=== PATIENT | male | born 1975 | race Two or more races ===

== ENCOUNTER 2021-04-29 06:14 | Outpatient (REF) | payer OTHER, SELFPAY ==
[2021-04-29 09:25] LABS: Alanine Aminotransferase 22 U/L (0-40); Albumin Level 4.5 g/dL (3.5-5.0); Alkaline Phosphatase 53 U/L (39-117); Anion Gap 12 (12-20); Aspartate Amino Transferase 14 U/L (5-37); Bilirubin Total 0.3 mg/dL (0.0-1.0); Blood Urea Nitrogen 10 mg/dL (9-16); Calcium 9.5 mg/dL (8.4-10.2); Carbon Dioxide 31 mmol/L (22-29); Chloride 105 mmol/L (96-108); Cholesterol 193 mg/dL; Estimated Glomerular Filt Rate > 60; Glucose Fasting 109 mg/dL (60-99); HDL Cholesterol 30 mg/dL; LDL Cholesterol Calculated 101 mg/dl; Potassium 4.2 mmol/L (3.3-5.1); Sodium 144 mmol/L (135-145); Total Protein 7.9 g/dL (6.5-8.0); Triglycerides 311 mg/dL
== END 2021-04-29 06:15 | disposition home or self-care (01) ==
LOC: HO.LAB 06:14
PROVIDERS: PCP Internal Medicine; Visit Provider Internal Medicine
DX: E66.9 Obesity, unspecified (principal); E78.5 Hyperlipidemia, unspecified
CPT/HCPCS: 36415; 80053; 80061

== ENCOUNTER 2022-01-04 06:05 | Outpatient (REF) | payer OTHER, SELFPAY ==
[2022-01-04 06:17] LABS: MANUAL DIFF FLAG NO
[2022-01-04 07:29] LABS: Basophils Percent Auto 0.9 % (0-2); Eosinophils Absolute Auto 0.3 X10*3/uL (0.0-0.4); Eosinophils Percent Auto 6.4 % (0-4); Hematocrit 47.9 % (42.0-52.0); Hemoglobin 15.1 g/dl (14.0-18.0); Lymphocytes Absolute Auto 2.3 X10*3/uL (1.2-4.9); Lymphocytes Percent Auto 48.7 % (20-40); Mean Corpuscular HGB Conc 31.5 g/dl (31.0-36.0); Mean Corpuscular Hemoglobin 27.1 pg (27.0-33.0); Mean Corpuscular Volume 85.8 fL (80.0-98.0); Mean Platelet Volume 9.9 fL (9.4-12.4); Monocytes Absolute Auto 0.4 X10*3/uL (0.1-1.2); Monocytes Percent Auto 8.9 % (2-11); Neutrophils Absolute Auto 1.7 x10*3/uL (2.0-8.3); Neutrophils Percent Auto 35.1 % (45-73); Platelet Count 240 X10*3/uL (160-400); Red Blood Count 5.58 X10*6/uL (4.60-5.80); Red Cell Distribution Width 14.8 % (11.0-16.0); White Blood Count 4.7 X10*3/uL (4.8-10.8)
[2022-01-04 07:54] LABS: Alanine Aminotransferase 25 U/L (0-40); Albumin Level 4.4 g/dL (3.5-5.0); Alkaline Phosphatase 43 U/L (39-117); Anion Gap 14 (12-20); Aspartate Amino Transferase 21 U/L (5-37); Bilirubin Total 0.6 mg/dL (0.0-1.0); Blood Urea Nitrogen 14 mg/dL (9-16); Calcium 9.9 mg/dL (8.4-10.2); Carbon Dioxide 33 mmol/L (22-29); Chloride 102 mmol/L (96-108); Cholesterol 194 mg/dL; Estimated Glomerular Filt Rate > 60; Glucose Fasting 90 mg/dL (60-99); HDL Cholesterol 36 mg/dL; LDL Cholesterol Calculated 122 mg/dl; Potassium 4.6 mmol/L (3.3-5.1); Sodium 144 mmol/L (135-145); Total Protein 7.5 g/dL (6.5-8.0); Triglycerides 180 mg/dL
[2022-01-04 08:16] LABS: Thyroid Stimulating Hormone 2.41 uIU/mL (0.32-4.0)
== END 2022-01-04 06:06 | disposition home or self-care (01) ==
LOC: HO.LAB 06:05
PROVIDERS: PCP Internal Medicine; Visit Provider Internal Medicine
DX: E78.5 Hyperlipidemia, unspecified (principal); E66.9 Obesity, unspecified; K21.9 Gastro-esophageal reflux disease without esophagitis
CPT/HCPCS: 36415; 80053; 80061; 84443; 85025

== ENCOUNTER 2023-05-25 10:36 | Day surgery (SDC) | payer OTHER, SELFPAY ==
[2023-05-23 09:46] VITALS: BMI 35.6
--- NOTE | 2023-05-24 09:33 | HO.ANESPROP2 ---
Documented by User: Michelle Prather NP 05/24/23 09:33 HPI - Anesthesia Eval Consult details Narrative: 47yo M for Colonoscopy PMFSH Active Problems Active Problems: All Active Problems (Updated 11/21/22 @ 09:20 by Bonnie Hickey MD) Stress at work (Acute) Physical exam (Acute) Mass of right hip region (Acute) Dyslipidemia (Acute) Obese (Acute) GERD (gastroesophageal reflux disease) (Acute) Past Medical History Medical History Dyslipidemia GERD (gastroesophageal reflux disease) Obese Family History Family History Father No problems noted. Mother Hypertension Stroke Surgical History Surgical History History of tonsillectomy Social History Social History Housing: House Alcohol intake: never Patient Tobacco Use Status: Never used Tobacco e-Cigarette/Vaping Use: Never Used Second Hand Smoke Exposure: No Are you DNR?: No Advance Directives: No Advance Directives Information Provided: Yes Nutrition Risks: No Nutritional Risk service: No Current occupational status: employed Current occupational exposures/hazards: No Cognitive needs: No Hearing needs: No Vision needs: No Meds Allergies Allergy/AdvReac Type Severity Reaction Status Date / Time No Known Allergies Allergy Verified 03/29/23 08:36 Exam Exam Date and Time: May 24, 2023 0933 Height,Weight and Vital Signs: Height 5 ft 10 in Weight 112.491 kg Assessment and Plan Assessment Anesthesia Assessment: Chart Reviewed Documented by User: Kendrick Prescott MD 05/25/23 11:20 [facility] Past Medical History Medical History Dyslipidemia GERD (gastroesophageal reflux disease) Obese Family History Family History Father No problems noted. Mother Hypertension Stroke Family history of problems with anesthesia: No Surgical History Surgical History History of tonsillectomy History of Problems with Anesthesia: No Social History Social History Housing: House Alcohol intake: never Patient Tobacco Use Status: Never used Tobacco e-Cigarette/Vaping Use: Never Used Second Hand Smoke Exposure: No Are you DNR?: No Advance Directives: No Advance Directives Information Provided: Yes Nutrition Risks: No Nutritional Risk service: No Current occupational status: employed Current occupational exposures/hazards: No Cognitive needs: No Hearing needs: No Vision needs: No Meds Allergies Allergy/AdvReac Type Severity Reaction Status Date / Time No Known Allergies Allergy Verified 03/29/23 08:36 Exam Airway Mallampati Class: II TM Dist: >3cm Neck ROM: Full Loose/Missing/Broken Teeth: No Assessment and Plan Assessment Anesthesia Assessment: Anesthesia Plan Discussed Final Anesthetic Review Family History of Problems with Anesthesia: No History of Problems with Anesthesia: No NPO: Yes ASA Class: II Final Preanesthetic Review: No Changes in Pt Med Stat, Meds/Allgs Chart Reviewed, Consent Obtained/Reviewed and Anes Risks/Benef Reviewed Patient Risk: Low Procedure Risk: Low Anesthetic Plan Anesthetic Plan: MAC: Disposition: Standard PACU
[2023-05-25] MEDS: Lactated Ringers 1,000 ML 100 ML IVCONT (10:47)
[2023-05-25 11:01] VITALS: BP 137/93; PULSE 92; RESP 18; TEMP 36.7; O2SAT 95
--- NOTE | 2023-05-25 11:13 | MHC.SHP ---
Pre-Procedural Eval Section A Date of Service: 05/25/23 Section B Chief Complaint: screening Details of Present Illness: Medical History Dyslipidemia GERD (gastroesophageal reflux disease) Obese Surgical History History of tonsillectomy Allergies: Allergies Allergy/AdvReac Type Severity Reaction Status Date / Time No Known Allergies Allergy Verified 03/29/23 08:36 Review of Systems Review of Systems Comment: 10 point ROS negative Exam Exam Comment: Gen appear: No acute distress HEENT: no icterus Chest: No overt resp distress Abd: soft, nontender, nondistended Psych: Stable affect, answering questions appropriately Neuro: A/Ox3 noted to move all extremities spontaneously Ext: no peripheral edema Plan Diagnosis/Plan: Unchanged I have reviewed the history and physical and performed a pertinent physical examination on my patient. No changes have occurred unless specified. Time Spent With Patient Time: Total time managing care of this patient today ____ minutes.
--- NOTE | 2023-05-25 11:22 | P.OP_ITS ---
Operative Note Operative Note Date of Service: 05/25/23 Narrative: Procedure: Colonoscopy Indication: Screening Endoscopist: Ketty Bates MD Anesthesia Provider: Dr Kendrick Prescott Anesthesia type: MAC Instrument: Olympus [id number]-[id number] Consent: Indication, risks vs benefits, and alternatives were discussed with the patient who gave written informed consent to proceed. EKG, pulse, pulse oximetry and blood pressure were monitored throughout the procedure. Please see anesthesia flowsheet. Procedure: The patient was brought to the procedure room and placed in the left lateral decubitus position. IV medications were administered by the anesthesia provider in attendance. A digital rectal exam was performed which was normal. A distal attachment cap was affixed to the tip of the scope and the colonoscope was then inserted through the anus and advanced through the colon to the cecum at 75 cm,and terminal ileum. Mucosa was carefully examined under high definition white light as the instrument was slowly withdrawn in a retrograde panoramic fashion. Retroflexion was performed in rectum. The procedure was not difficult. There were no immediate obvious complications. The quality of the prep was BBPS: 3+2+3 = adequate Withdrawal time 10 minutes. Limitations: No limitations. Findings: Mucosa: Aphthous erosions and ulcerations were noted on the IC valve and terminal ileum limited to first 10 cm. The terminal ileum mucosa was normal beyond 10 cm of intubation and the remaining colon mucosa was normal as well. Cold forceps biopsies were taken for histology. Protruding lesions: * Medium internal hemorrhoids without stigmata of recent bleeding. Impression: 1. Abnormal distal T.I and ICV mucosa (biopsy) 2. Internal hemorrhoids Recommendations: - Follow path results. - If no stigmata of chronic inflammation, repeat colonoscopy in 10 years for CRC screening. - Also recommend sleep study to r/o DESTINY.
[2023-05-25 11:53] VITALS: BP 131/91; PULSE 91; RESP 16; TEMP 36.2; O2SAT 97
[2023-05-25 12:08] VITALS: BP 132/98; PULSE 78; RESP 16; TEMP 36.2; O2SAT 97
== END 2023-05-25 13:38 | disposition home or self-care (01) ==
PROVIDERS: PCP Internal Medicine; Visit Provider Internal Medicine
PROC: 0DJD8ZZ Inspection of Lower Intestinal Tract, Via Natural or Artificial Opening Endoscopic (ICD-10-PCS; CPT 45378; principal; 2023-05-25 13:20)
DX: Z12.11 Encounter for screening for malignant neoplasm of colon (principal); K51.80 Other ulcerative colitis without complications; K64.8 Other hemorrhoids; E78.5 Hyperlipidemia, unspecified; K21.9 Gastro-esophageal reflux disease without esophagitis; E66.9 Obesity, unspecified; Z68.34 Body mass index [BMI] 34.0-34.9, adult; Z79.899 Other long term (current) drug therapy
CPT/HCPCS: 45380; 88305

== ENCOUNTER → 2023-05-25 10:36 | Outpatient (BNV) | payer OTHER, SELFPAY | PROVIDERS: PCP Internal Medicine; Visit Provider Internal Medicine | DX: Z12.11 Encounter for screening for malignant neoplasm of colon (principal); K63.89 Other specified diseases of intestine | CPT/HCPCS: 45380 ==

== ENCOUNTER 2024-09-19 12:31 | Outpatient (AMB) | payer OTHER, SELFPAY ==
--- NOTE | 2024-09-19 12:33 | MHC.PC.OV ---
Vital Signs 09/19/24 12:35 Height 5 ft 10 in Weight 274 lb BMI 39.3 BP 132/80 Blood Pressure Location Lt brachial Position Sitting Intake Visit Reasons: annual exam Intake Note: Patient here for a physical exam Primary Products Inspectors Required: No Accompanied by: Self / Same As Patient Allergies No Known Allergies Allergy (Verified 09/19/24 12:49) Medication List - Last Reconciled 09/19/24 by Bonnie Hickey MD pantoprazole 40 mg PO DAILY 90 days Tobacco use date assessed: 09/19/24 Dental Screening Dental Screen Date: 09/19/24 Did you have a dental visit in the last 12 months?: Yes Did you have a dental problem in the last 6 months where you did not have access to dental care?: No Was dental information given to patient?: Patient has dentist HPI HPI Comments History of Present Illness Details The patient is a 49-year-old male presenting for his physical exam. The patient underwent a surgical procedure approximately three weeks ago and is currently in recovery. He reports ongoing discomfort in the area, describing it as still being a bit tender. In the past, the patient underwent a tonsillectomy before. No additional surgeries were noted other than the recent intervention. The patient has been managing his weight through a dietary program rather than opting for surgical weight loss interventions. He reports no significant complications from his current recovery, but he remains sensitive in the area. Had colonoscopy last year and is up to date on his vaccines except flu vaccine which will be adminiter today. [facility] Medical History (Updated 09/19/24 @ 12:54 by Bonnie Hickey MD) Dyslipidemia Obese GERD (gastroesophageal reflux disease) Surgical History (Updated 09/19/24 @ 12:54 by Bonnie Hickey MD) History of deviated nasal septum History of tonsillectomy Family History (Updated 09/19/24 @ 12:54 by Bonnie Hickey MD) Father Substance use disorder Mother Hypertension Stroke Social History Housing: House Alcohol intake: never Patient Tobacco Use Status: Never used Tobacco e-Cigarette/Vaping Use: Never Used Second Hand Smoke Exposure: No service: No Current occupational status: employed Current occupational exposures/hazards: No Cognitive needs: No Hearing needs: No Vision needs: No Questionnaire PHQ-9 Over the last 2 weeks, how often have you been bothered by any of the following problems? 1. Little interest or pleasure in doing things: not at all 2. Feeling down, depressed, or hopeless: not at all 3. Trouble falling or staying asleep, or sleeping too much: not at all 4. Feeling tired or having little energy: not at all 5. Poor appetite or overeating: not at all 6. Feeling bad about yourself - or that you are a failure or have let yourself or your family down: not at all 7. Trouble concentrating on things, such as reading the newspaper or watching television: not at all 8. Moving or speaking so slowly that other people could have noticed. Or the opposite - being so fidgety or restless that you have been moving around a lot more than usual: not at all 9. Thoughts that you would be better off or of hurting yourself in some way: not at all Total score: 0 Depression Screening Interpretation: Negative Depression Screening Done: Yes 92309 - PHQ-9 Billing: Yes Source: Developed by Drs. Elfego Ruiz, Cesilia Fry, Edwin Talley and colleagues, with an educational genesis from [employer]. Thrive Questionnaire Date Thrive assessed: 09/19/24 I am a: Patient What is your living situation today?: I have a steady place to live Within the past 12 months, did the food you bought not last and you didn't have the money to get more?: Never true Within the past 12 months, did you worry whether your food would run out before you got money to buy more?: Never true Do you have trouble paying for medicines?: No Do you have trouble getting transportation to medical appointments?: No Do you have trouble paying your heating and electricity bill?: No Do you have trouble taking care of your child, family member or friend?: No Do you have trouble with day-to-day activities such as bathing, preparing meals, shopping, managing finances, etc.?: No Are you currently unemployed and looking for a job?: No Are you interested in more education?: No Please select the resources that you would like help with: None Currently or been in a relationship where the following occur: No concerns reported THRIVE Score: 0 AUDIT C Alcohol Use Questionnaire (AUDIT-C) 1. How often do you have a drink containing alcohol?: Never Total Score: 0 Score Reviewed/Action Taken: No JUMA-7 AMB Questionnaire JUMA-7 Date JUMA - 7 assessed: 09/19/24 Feeling nervous, anxious, or on edge: 0 = Not at all Not being able to stop or control worryin = Not at all Worrying too much about different things: 0 = Not at all Trouble relaxin = Not at all Being so restless that it is hard to sit still: 0 = Not at all Becoming easily annoyed or irritable: 0 = Not at all Feeling afraid as if something awful might happen: 0 = Not at all Total JUMA-7 score (0-4 normal; 5-9 mild; 10-14 moderate; 15-21 severe): 0 Source: Developed by Drs. Elfego Ruiz, Cesilia Fry, Edwin Talley and colleagues, with an educational genesis from [employer]. JUMA-7 Assessment Billing JUMA-7 Assessment Tool: JUMA-7 Assessment 12736 Review of Systems Const Details: - Respiratory: Denies chest pain or shortness of breath - Gastrointestinal: Denies nausea, vomiting, or abdominal pain - Genitourinary: Denies any abnormal urination Physical exam (Primary Care) Vital Signs: Last Vital Signs BP 132/80 09/19/24 12:35 BMI result Body Mass Index 39.3 BMI Assessment/Plan discussion: High BMI High, discussed plan: lifestyle, weight reduction, dietary and physical activity Tobacco/Smoking Status: Tobacco use Status Tobacco use date assessed 09/19/24 09/19/24 12:40 Patient Tobacco Use Status Never used Tobacco 09/19/24 12:40 e-Cigarette/Vaping Use Never Used 09/19/24 12:40 PHQ-9: PHQ-9 Score PHQ-9: Total score 0 09/19/24 13:02 Depression Screening Interpretation: Negative Thrive Assessment: Date of Thrive Assessment Date Thrive assessed 09/19/24 09/19/24 12:40 Currently or been in a relationship where the following occur: No concerns reported Const Other: General: Cooperative, healthy appearing, comfortable, no acute distress and well developed Orientation: Patient oriented x3 Limitations: No limitations Head: Normal to inspection Ears: Hearing grossly normal bilaterally Nose: Normal external nose present Face and sinus: Normal facial exam Eyes: Appearance normal, both eyes and all related structures Neck: Normal visual inspection and Yes full ROM Respiratory: Normal respiratory effort and able to speak in complete sentences. Clear to auscultation bilaterally Cardiovascular: Regular rate and rhythm. Normal S1 and S2 GI: Normal to inspection. Soft to palpation and nontender Skin: No rashes or lesions noted Neuro: Patient oriented x3 Extremities: Normal to inspection Office Procedures Flu Questionnaire Does the patient have a severe egg allergy?: No Does the patient have severe life threatening allergies?: No Does the patient have a fever or illness today?: No Has the patient ever had Guillain-[place] Syndrome?: No Has the patient ever had any past reaction to a flu shot?: No Immunizations Fluarix Triv 5150-7491 (PF) 45 mcg (15 mcg x 3)/0.5 mL IM syringe Performing Provider: Bonnie Hickey MD [place] [facility] [place] [facility] Administered by: DIDI Hopkins on 09/19/24 13:02 Dose Route Admin Location Dispensed Lot Number Expiration Date NDC Cushion Former 0.5 mL IM Left Deltoid 0.5 mL [id number] 04/07/25 79578-950-82 Zayo VIS Given Date VIS Provided VIS Publication Date 09/19/24 Single Vaccine 21 Eligibility Eligibility Date Funding Source Not [facility] Eligible 09/19/24 Private Coding Level of Care Code Est Pt Prev Care 40-64y(50444) Diagnoses Physical exam Z00.00 Additional Codes JUMA-7 Assessment Billing - JUMA-7 Assessment Tool: JUMA-7 Assessment 46642 ([id number]) PHQ-9 - 75260 - PHQ-9 Billing: Yes ([id number]) Time Spent (min) 30 Assessment & Plan Assessment & Plan (1) Physical exam: Code(s): Z00.00 - Encounter for general adult medical examination without abnormal findings Category: Medical Plan: - Continue postoperative monitoring and ensure adequate recovery support - Encourage adherence to dietary management for weight control - Conduct laboratory work focusing on glucose levels, renal function, and other routine evaluations Patient was informed and verbally consented to the use of an ambient scribe for clinic note documentation during this visit. During this visit, we discussed the current phase of postoperative recovery, emphasizing the importance of monitoring for any changes in the surgical site, such as increased pain or inflammation. We explored management strategies focusing on dietary interventions to aid in weight management, acknowledging the patient's choice not to pursue surgical weight loss at this time. I confirmed that laboratory tests had been ordered to monitor health parameters, even though the patient reported that nothing was available in the system earlier. Additionally, we underscored the importance of an eight-hour fasting period before tests. Orders: Orders Influenza [id number] Immunization Today Z23 - Encounter for immunization Comprehensive [place]. Panel Fast Today Z00.00 - Encounter for general adult medical examination without abnormal findings Lipid Panel Today E78.5 - Hyperlipidemia, unspecified, Z00.00 - Encounter for general adult medical examination without abnormal findings Patient Instructions: - Continue with the dietary plan as discussed - Monitor for increased pain, redness, or other concerning changes at the surgical site - Follow instructions for laboratory tests, including fasting for eight hours before testing - Maintain routine follow-up appointments to track recovery and weight management progress
--- OUTSIDE RECORDS SUMMARY | 2024-09-19 12:34 | XMS_ITS | Continuity of Care Document ---
Author Organization [place] - [facility], [facility] Address [address] [place] [address] Care Team Providers Care Wireless Engineer Name Role Phone CATINA ANGILN Primary Care Provider [phone] Assessment Encounter Date Assessment Date Assessment LastModified by Organization Details LastModified Time 08/30/2024 08/30/2024 Patient healing normally following septoplasty and bilateral inferior turbinate resection. Reported dramatic improvement in bilateral nasal airflow following removal of splints. He will follow up as scheduled with his surgeon next month and will call in the interim with any issues that arise. [email or web address] Not available 08/30/2024 15:23:26 Plan of Treatment Reminders Order Date Submit Date Provider Last Modified By Organization Details Last Modified Time Details Appointments Post Op 024 03:15PM МАРИЯ LUTZ MD Not available Not available Not available Lab None record ed. Referral None record ed. Procedures None record ed. Surgeries None record ed. Imaging None record ed. Medication Orders None record ed. Patient TargetsNo targets recorded. Patient InstructionsNo instructions recorded. Reason for Referral None Reported. Problems Name Problem SNOMED Code Status Onset Date Resolution Date Notes Provider Name and Address Organization Details Recorded Time Obstructi ve sleep apnea syndrome 41362610 Active 2018 Obstructiv e sleep apnea (adult) (pediatric ); Note: Date Diagnosed: 05/02/2019 4:42 PM (G47.33) Not Available [facility] 4 02:41:35 Follow-up visit Active 2015 Encounter for follow-up examinatio n after completed treatment for conditions other than malignant neoplasm; Note: Date Diagnosed: 08/05/2016 4:17 PM (Z09) Not Available [facility] 4 02:41:37 Nasal congestio n 54240320 Active 2016 Nasal congestion ; Note: Date Diagnosed: 05/18/2017 10:23 AM (R09.81) Not Available [facility] 4 02:41:29 Hypertrop hy of tonsils 44633258 Active 2015 Hypertroph y of tonsils; Note: Date Diagnosed: 04/28/2016 10:20 AM (J35.1) Not Available [facility] 4 02:41:45 Snoring 85620391 Active 2015 Snoring; Note: Date Diagnosed: 04/28/2016 10:20 AM (R06.83) Not Available [facility] 4 02:41:33 Hypertrop hy of adenoids 641197263 Active 2018 Hypertroph y of adenoids; Note: Date Diagnosed: 10/19/2018 11:09 AM (J35.2) Not Available [facility] 4 02:41:28 Vasomotor rhinitis 1781493 Active 2023 МАРИЯ LUTZ MD [address] [facility],[place] [address], [place], [address] , [facility] 4 15:32:03 Hypertrop hy of nasal turbinate s 45024120 Active 2023 МАРИЯ LUTZ MD [address] [place] [address],[place] [address], [place], [address] , [facility] 4 15:32:07 Deviated nasal septum 259485518 Active 2023 МАРИЯ LUTZ MD [address] [place] [address],[place] [address], [place], [address] , [facility] 4 14:36:06 Problem Notes None recorded. Procedures Surgical History Date Name Laterality Status Provider Name and Address Organization Details Recorded Time 4 Repair of nasal septum completed МАРИЯ LUTZ MD [address] [place] [address],[place] [address], [place], [address], [facility] 08/27/2024 11:27:49 4 Ablate inf turbinate submuc completed МАРИЯ LUTZ MD [address] [facility], [place], [address], [facility] 08/27/2024 11:28:28 4 SEPTOPLASTY (SURG) completed Yunier Barr [place] - [facility] 08/28/2024 14:37:06 4 NasalEndoscopy_ DP completed МАРИЯ LUTZ MD [address] [facility] [place],[facility] [address], [place], [address], [facility] 06/21/2024 14:35:57 Imaging Results None recorded. Procedure Notes None recorded. Medical Equipment None Reported. Allergies No known drug allergies Medications Name Sig Start Date Stop Date Status Note LastModified by Organization Details LastModified Time oxycodone 5 mg/5 mL oral solution 5-10 ml by mouth 08/30 completed Medicati on ID: [id number] D uration Value: 7 Brand Name: oxycodon e Send Method: E-Prescr ibed Sub s Allowed: subs OK Medic ationGen ericName : oxycodon e Not Available Not Available Not Available pantopraz ole 40 mg tablet,de layed release 2018 active Medicati on ID: [id number] D uration Value: 30 Brand Name: pantopra zole Sen d Method: E-Prescr ibed Sub s Allowed: subs OK Speci al Instruct ion: TAKE ONE TABLET BY MOUTH EVERY DAY Medi cationGe nericNam e: pantopra zole Not Available Not Available Not Available omeprazol e 20 mg capsule,d elayed release 10/19 completed Medicati on ID: [id number] D uration Value: 30 Reason: () Brand Name: omeprazo le Send Method: E-Prescr ibed Sub s Allowed: subs OK Speci al Instruct ion: TAKE 2 CAPSULES BY MOUTH ONCE A DAY Medi cationGe nericNam e: omeprazo le Not Available Not Available Not Available GaviLyte- G 236 gram-22.7 4 gram-6.74 gram-5.86 gram oral solution ONCE MIXED, TAKE 240 ML. ORALLY EVERY 10 MINUTES UNTIL FECAL EFFLUENT IS CLEAR. 08/30 completed Not Available Not Available Not Available Flonase Allergy Relief 50 mcg/actua tion nasal spray,shiva pension 2 puff into both nostrils 2016 active Medicati on ID: [id number] D uration Value: 30 Prescri bed By Name: JAZMYNE Amanda nd Name: Flonase Allergy Relief S end Method: E-Prescr ibed Sub s Allowed: subs OK Medic ationGen ericName : Flonase Allergy Relief Not Available Not Available Not Available Vitals Date Recorded Body height Body mass index (BMI) Body weight Provider Name and Address Organization Details Last Updated DateTime 08/30/2024 177.8 cm 38.7 kg/m2 294800.94 g Maria Teresa Trinh [place] - [facility] 08/30/2024 15:00:11 Social History None recorded. Functional Status None recorded. Mental Status None recorded. Family History Nothing Reported. Medical History No medical history recorded. Past Encounters Encounter ID Performer Location Encounter Start Date Encounter Closed Date Diagnosis/Indication Diagnosis SNOMED-CT Code Diagnosis ICD10 Code [id number] МАРИЯ LUTZ MD [facility] [address] [address] 08/30/2024 14:55:08 08/30/2024 15:21:04 Hypertrophy of nasal turbinates 40578221 J34.3 Deviated nasal septum 12 5724930 J34.2 Health Concerns Section Related Observation LastModified by Organization Detai ls LastModified Time None Recorded Concern Status LastModified by Organization Details LastModified Time None Recorded Payers Encounter Date Sequence Insurance Name Policy Number Policy Rick Covered Member ID Rick Member ID Guarantor Name 08/30/[address] [place] [address] [id number] Loy Bar [facility] [id number] JaceIvette Bar Notes Date Note Type Note Provider Name and Address Organization Details Recorded Time 08/30/2024 text/html Patient presents for post-op follow up of nasal surgery including: septoplasty with turbinate reduction{{right l eft bilateral*}} Patient has been tolerating nasal packing with {{minimal* moderat e severe}} pain and {{minimal* moderat e severe}} bleeding. Patient has been taking meds as prescribed and using saline spray or irrigations МАРИЯ LUTZ MD [address] [place] [address], [place], [address], [facility] 08/30/2024 17:34:37
--- OUTSIDE RECORDS SUMMARY | 2024-09-19 12:34 | XMS_ITS | Data Portability ---
Author Organization [place] - [facility], Allergy Address [address] [place] [address] Care Team Providers Care Technical Operations Vice President Name Role Phone CATINA ANGLIN Primary Care Provider [phone] Assessment Encounter Date Assessment Date Assessment LastModified by Organization Details LastModified Time 06/21/2024 06/21/2024 Patient has a curvature of the nasal septum along with hypertrophy of the inferior turbinates with symptomatic limitation of airflow. Discussed previous attempts at medical management which have not been successful. They would now like to proceed with surgical intervention with a septoplasty and bilateral inferior turbinate reduction under general anesthesia. The surgical risks of these procedures include, though not limited to, loss of smell and taste, bleeding, incomplete relief of nasal obstruction, atrophic rhinitis, tooth or lip numbness, infection and the risk of septal perforation with its resultant whistling were discussed. In addition, I explained that sometimes the nasal appearance can change and that chronic sinusitis can result. During the surgery splints are often inserted into the nasal passage to help the healing process. The splints will remain in place until the first postoperative visit when they will be removed in the office. The splints are a soft clear silicone material that have tubes to allow airflow. Beginning on postoperative day 1 it is recommended to use nasal saline several times daily to keep the splint clean. We also discussed the anesthetic risks. All questions were answered and patient/guardian fully understands the risks, benefits and alternatives as well as the limitation of surgery. This will be scheduled at a mutually convenient time in the near future. [email or web address] Not available 06/21/2024 14:36:41 08/30/2024 08/30/2024 Patient healing normally following septoplasty [...] Last Modified Time Details Appointments Post Op 2023 03:15P M МАРИЯ LUTZ MD Not available Not available Not available Lab None recorded. Referral None recorded. Procedures None recorded. Surgeries septoplas ty (SURG) 2023 024 [email or web address] Not available 06/21/2024 15:58:03 submucous resection inferior turbinate (SURG) 2023 024 [email or web address] Not available 06/21/2024 15:58:20 Imaging None recorded. Medication Orders None recorded. Patient TargetsNo targets recorded. Patient InstructionsNo instructions recorded. Reason for Referral None Reported. Results Created Date Observation Date Name Description Value Unit Range Abnormal Flag Note LastModifiedBy Organization Detail LastModifiedTime 05/29/20 24 10/30/2018 imagi ng/di agnos tic resul t No observ ation record ed. [email or web address] Not Available 20:46:04 05/29/20 24 04/01/2019 imagi ng/di agnos tic resul t No observ ation record ed. [email or web address] Not Available 20:46:14 05/29/20 24 04/01/2019 imagi ng/di agnos tic resul t No observ ation record ed. [email or web address] Not Available 20:46:21 Result Notes None recorded. Problems Name Problem SNOMED Code Status Onset Date Resolution Date Notes Provider Name and Address Organization Details Recorded Time Obstructi ve sleep apnea syndrome 53877284 Active 2018 Obstructiv e sleep apnea (adult) (pediatric ); Note: Date Diagnosed: 05/02/2019 4:42 PM (G47.33) Not Available [facility] 4 02:41:35 Follow-up visit Active 2015 Encounter for follow-up examinatio n after completed treatment for conditions other than malignant neoplasm; Note: Date Diagnosed: 08/05/2016 4:17 PM (Z09) Not Available [facility] 4 02:41:37 Nasal congestio n 29645294 Active 2016 Nasal congestion ; Note: Date Diagnosed: 05/18/2017 10:23 AM (R09.81) Not Available [facility] 4 02:41:29 Hypertrop hy of tonsils 12843357 Active 2015 Hypertroph y of tonsils; Note: Date Diagnosed: 04/28/2016 10:20 AM (J35.1) Not Available [facility] 4 02:41:45 Snoring 61737008 Active 2015 Snoring; Note: Date Diagnosed: 04/28/2016 10:20 AM (R06.83) Not Available [facility] 4 02:41:33 Hypertrop hy of adenoids 887013386 Active 2018 Hypertroph y of adenoids; Note: Date Diagnosed: 10/19/2018 11:09 AM (J35.2) Not Available [facility] 4 02:41:28 Vasomotor rhinitis 7949394 Active 2023 МАРИЯ LUTZ MD [address] [facility],[place] [address], [place], [address] , [facility] - [facility] 4 15:32:03 Hypertrop hy of nasal turbinate s 68241703 Active 2023 МАРИЯ LUTZ MD [address] [facility],[place] [address], [place], [address] , [place] - [facility] 4 15:32:07 Deviated nasal septum 607770414 Active 2023 МАРИЯ LUTZ MD [address] [place] [address],[place] [address], [place], [address] , [place] - [facility] 4 14:36:06 Problem Notes None recorded. Procedures Surgical History Date Name Laterality Status Provider Name and Address Organization Details Recorded Time Repair of nasal septum completed МАРИЯ LUTZ MD [address] [place] [address],[place] [address], [place], [address], [facility] - [facility] 08/27/2024 11:27:49 4 Ablate inf turbinate submuc completed МАРИЯ LUTZ MD [address] [facility],[place] [address], [place], [address], [place] - [facility] 08/27/2024 11:28:28 4 SEPTOPLASTY (SURG) completed Yunier Barr [place] - [facility] 08/28/2024 14:37:06 4 NasalEndoscopy_ DP completed МАРИЯ LUTZ MD [address],[facility], [place], [address], [place] - [facility] 06/21/2024 14:35:57 Imaging Results Imaging Date Name Status LastModified by Organiz ation Details LastModified Time 10/30/2018 imaging/diag nostic result completed Information not available 05/29/2024 20:46:04 04/01/2019 imaging/diag nostic result completed Information not available 05/29/2024 20:46:14 04/01/2019 imaging/diag nostic result completed Information not available 05/29/2024 20:46:21 Procedure Notes None recorded. Medical Equipment None Reported. Allergies No known drug allergies Medications Name Sig Start Date Stop Date Status Note LastModified by Organization Details LastModified Time oxycodone 5 mg/5 mL oral solution 5-10 ml by mouth 08/30 completed Medicati on ID: [id number] D uration Value: 7 Brand Name: oxycodon e Send Method: E-Prescr ibed Sub s Allowed: subs OK Medic ationGen ericName : oxycodon e Not Available Not Available Not Available pantopraz ole 40 mg tablet,de layed release 2018 active Medicati on ID: [id number] D uration Value: 30 Brand Name: pantopra zole Sen d Method: E-Prescr ibed Sub s Allowed: subs OK Speci al Instruct ion: TAKE ONE TABLET BY MOUTH EVERY DAY Medi cationGe nericNam e: pantopra zole Not Available Not Available Not Available omeprazol e 20 mg capsule,d elayed release 10/19 completed Medicati on ID: [id number] D uration Value: 30 Reason: () Brand [...] both nostrils 2016 active Medicati on ID: [id number] D uration Value: 30 Prescri bed By Name: JAZMYNE Amanda nd Name: Flonase Allergy Relief S end Method: E-Prescr ibed Sub s Allowed: subs OK Medic ationGen ericName : Flonase Allergy Relief Not Available Not Available Not Available Vitals Date Recorded Body height Body mass index (BMI) Body weight Provider Name and Address Organization Details Last Updated DateTime 06/21/2024 177.8 cm 38.3 kg/m2 079084.16 g Salvatore Orourke [place] [facility] 06/21/2024 14:14:22 Date Recorded Body height Body mass index (BMI) Body weight Provider Name and Address Organization Details Last Updated DateTime 08/30/2024 177.8 cm 38.7 kg/m2 586958.94 g Maria Teresa Trinh [place] - [facility] 08/30/2024 15:00:11 Social History None recorded. Functional Status None recorded. Mental Status None recorded. Family History Nothing Reported. Medical History No medical history recorded. Past Encounters Encounter ID Performer Location Encounter Start Date Encounter Closed Date Diagnosis/Indication Diagnosis SNOMED-CT Code Diagnosis ICD10 Code [id number] МАРИЯ LUTZ MD [facility] [address] [address] 06/21/2024 13:57:46 06/21/2024 14:42:23 Vasomotor rhinitis 7441710 J30.0 Hypertroph y of nasal turbinates 32125435 J34.3 Deviated nasal septum 12 9849788 J34.2 [id number] МАРИЯ LUTZ MD [facility] [address] [place] [address] 08/30/2024 14:55:08 08/30/2024 15:21:04 Hypertrophy of nasal turbinates 98250061 J34.3 Deviated nasal septum 12 5903669 J34.2 Health Concerns Section Related Observation LastModified by Organization Detai ls LastModified Time None Recorded Concern Status LastModified by Organization Details LastModified Time None Recorded Advance Directives Directive None Recorded Payers Encounter Date Sequence Insurance Name Policy Number Policy Rick Covered Member ID Rick Member ID Guarantor Name 06/21/2024 1 [facility] [id number] Loy Steele Bar [id number] Jace Bar 08/30/2024 1 [facility] [id number] Jace Bar [id number] Loy Queena Notes Date Note Type Note Provider Name and Address Organization Details Recorded Time 06/21/2024 text/html nasal congestion when supineflonase was not helpful so he stoppedno nasal salineno epistaxis, no nasal trauma hxgood sense of smellfeels right side is more blocked Nasal endoscopy with bx on 10/30/18 revealed benign lymphoid hyperplasia01/21/19 - adenoidectomy 6 - tonsillectomy 04/01/2019 Home PSG at SMSBMI 35.8REI 65.6Central and mixed apnea events 43%CPAP trial МАРИЯ LUTZ MD [address] [place] [address], [phone], [facility] - [facility] 06/21/2024 14:37:19 08/30/2024 text/html Patient presents for post-op follow up of nasal surgery including: septoplasty with turbinate reduction{{right le ft bilateral*}} Patient has been tolerating nasal packing with {{minimal* moderate severe}} pain and {{minimal* moderate severe}} bleeding. Patient has been taking meds as prescribed and using saline spray or irrigations МАРИЯ LUTZ MD [address] [place] [address],[address], [address], [facility] - [facility] 08/30/2024 17:34:37
--- OUTSIDE RECORDS SUMMARY | 2024-09-19 12:34 | XMS_ITS | Continuity of Care Document ---
Author Organization [place] - [facility], [facility] Address [address] [place] [address] Care Team Providers Care Resource Director Name Role Phone CATINA ANGLIN Primary Care Provider Assessment Encounter Date Assessment Date Assessment LastModified [...] near future. [email or web address] Not available 06/21/2024 14:36:41 Plan of Treatment Reminders Order Date Submit Date Provider Last Modified By Organization Details Last Modified Time Details Appointments Post Op 2023 03:15P M МАРИЯ LUTZ MD Not available Not available Not available Lab None recorded. Referral None recorded. Procedures None recorded. Surgeries septoplas ty (SURG) 2023 024 [email or web address] Not available 06/21/2024 15:58:03 submucous resection inferior turbinate (SURG) 2023 024 [email or web address] Not available 06/21/2024 15:58:20 Imaging None recorded. [...] Recorded Time Obstructi ve sleep apnea syndrome 28705701 Active 2018 Obstructiv e sleep apnea (adult) (pediatric ); Note: Date Diagnosed: 05/02/2019 4:42 PM (G47.33) Not Available [facility] 4 02:41:35 Follow-up visit Active 2015 Encounter for follow-up examinatio n after completed treatment for conditions other than malignant neoplasm; Note: Date Diagnosed: 08/05/2016 4:17 PM (Z09) Not Available [facility] 4 02:41:37 Nasal congestio n 97746998 Active 2016 Nasal congestion ; Note: Date Diagnosed: 05/18/2017 10:23 AM (R09.81) Not Available [facility] 4 02:41:29 Hypertrop hy of tonsils 26147369 Active 2015 Hypertroph y of tonsils; Note: Date Diagnosed: 04/28/2016 10:20 AM (J35.1) Not Available [facility] 4 02:41:45 Snoring 12589575 Active 2015 Snoring; Note: Date Diagnosed: 04/28/2016 10:20 AM (R06.83) Not Available [facility] 4 02:41:33 Hypertrop hy of adenoids 471765375 Active 2018 Hypertroph y of adenoids; Note: Date Diagnosed: 10/19/2018 11:09 AM (J35.2) Not Available [facility] 4 02:41:28 Vasomotor rhinitis 3083654 Active 2023 МАРИЯ LUTZ MD [address] [place] [facility], [place], [address] , [place] - [facility] 4 15:32:03 Hypertrop hy of nasal turbinate s 00052019 Active 2023 МАРИЯ LUTZ MD [address] [place], [place] [address] [facility], [place], [address] , [facility] - [facility] 4 15:32:07 Deviated nasal septum 386498036 Active 2023 МАРИЯ LUTZ MD [address],[place] [facility], [place], [address] , [facility] - [facility] 4 14:36:06 Problem Notes None recorded. Procedures Surgical History Date Name Laterality Status Provider Name and Address Organization Details Recorded Time 4 Repair of nasal septum completed МАРИЯ LUTZ MD [address] [place] [address], [place], [address], [facility] [place] 08/27/2024 11:27:49 4 Ablate inf turbinate submuc completed МАРИЯ LUTZ MD [address],[place] [facility], [place], [address], [facility] - [facility] 08/27/2024 11:28:28 4 SEPTOPLASTY (SURG) completed Yunier Barr [place] - [facility] 08/28/2024 14:37:06 4 NasalEndoscopy_ DP completed МАРИЯ LUTZ MD [address] [place] [address], [phone], [place] - [facility] 06/21/2024 14:35:57 Imaging Results None recorded. Procedure Notes None recorded. Medical Equipment None Reported. Allergies No known drug allergies Medications Name Sig Start Date Stop Date Status Note LastModified by Organization Details LastModified Time oxycodone 5 mg/5 mL oral solution 5-10 ml by mouth 08/30 completed Medicati on ID: [id number] D uration Value: 7 Brand Name: oxycodon e Send Method: E-Prescr ibed Sub s Allowed: subs OK Medic ationGen ericName : oxycodon e Not Available Not Available Not Available pantopraz ole 40 mg tablet,de layed release 2018 active Medicati on ID: [id number] D uration Value: 30 Brand Name: pantopra zole Sen d Method: E-Prescr ibed Sub s Allowed: subs OK Speci al Instruct ion: TAKE ONE TABLET BY MOUTH EVERY DAY Medi cationGe nericNam e: pantopra zole Not Available Not Available Not Available omeprazol e 20 mg capsule,d elayed release 10/19 completed Medicati on ID: [id number] D uration Value: 30 Reason: () Brand [...] both nostrils 2016 active Medicati on ID: [id number] D uration Value: 30 Prescri bed By Name: JAZMYNE Amanda nd Name: Flonase Allergy Relief S end Method: E-Prescr ibed Sub s Allowed: subs OK Medic ationGen ericName : Flonase Allergy Relief Not Available Not Available Not Available Vitals Date Recorded Body height Body mass index (BMI) Body weight Provider Name and Address Organization Details Last Updated DateTime 06/21/2024 177.8 cm 38.3 kg/m2 120560.16 g Salvatore Orourke [place] - [facility] 06/21/2024 14:14:22 Social History None recorded. Functional Status None recorded. Mental Status None recorded. Family History Nothing Reported. Medical History No medical history recorded. Past Encounters Encounter ID Performer Location Encounter Start Date Encounter Closed Date Diagnosis/Indication Diagnosis SNOMED-CT Code Diagnosis ICD10 Code [id number] МАРИЯ LTUZ MD [facility] [address] [address] 06/21/2024 13:57:46 06/21/2024 14:42:23 Vasomotor rhinitis 5137575 J30.0 Hypertroph y of nasal turbinates 05093615 J34.3 Deviated nasal septum 12 7181939 J34.2 Health Concerns Section Related Observation LastModified by Organization Detai ls LastModified Time None Recorded Concern Status LastModified by Organization Details LastModified Time None Recorded Payers Encounter Date Sequence Insurance Name Policy Number Policy Rick Covered Member ID Rick Member ID Guarantor Name 06/21/[address] [place] [address] [id number] Loy Bar [facility] [id number] Loy Bar Notes Date Note Type Note Provider [...] apnea events 43%CPAP trial МАРИЯ LUTZ MD [address] [place] [address], [phone], [place] - [facility] 06/21/2024 14:37:19
[2024-09-19 12:35] VITALS: BP 132/80; BMI 39.3
== END 2024-09-19 13:03 | disposition home or self-care (01) ==
PROVIDERS: PCP Internal Medicine; Visit Provider Internal Medicine
DX: Z23 Encounter for immunization (principal); Z00.00 Encounter for general adult medical examination without abnormal findings

== ENCOUNTER → 2024-09-19 12:31 | Outpatient (BNVA) | payer OTHER, SELFPAY | PROVIDERS: PCP Internal Medicine; Visit Provider Internal Medicine | DX: Z00.00 Encounter for general adult medical examination without abnormal findings (principal); Z23 Encounter for immunization | CPT/HCPCS: 90471; 90656; 96127 ==

== ENCOUNTER 2025-09-25 09:31 | Outpatient (AMB) | payer BC, SELFPAY ==
[2025-09-25 09:46] VITALS: BP 160/98; PULSE 98; RESP 18; O2SAT 97; BMI 41.8
--- NOTE | 2025-09-25 09:46 | A.OFFPC_ITS ---
Vital Signs 09/25/25 09:46 Height 5 ft 10 in Weight 291 lb 8 oz BMI 41.8 BP 160/98 H Blood Pressure Location Lt brachial Position Sitting Respiration 18 Pulse 98 Pulse Source Pulse Oximeter Temp Source Temporal Artery Scan Pulse Oximetry (%) 97 Oxygen Delivery Method Room Air Intake Visit Reasons: Annual Physical Certified Nurse Operating Room Required: No Accompanied by: Self / Same As Patient Allergies No Known Allergies Allergy (Verified 09/25/25 09:55) Medication List - Last Reconciled 09/25/25 by Bonnie Hickey MD pantoprazole 40 mg PO DAILY 90 days Tobacco use date assessed: 09/25/25 Dental Screening Dental Screen Date: 09/25/25 Did you have a dental visit in the last 12 months?: Yes Did you have a dental problem in the last 6 months where you did not have access to dental care?: No Was dental information given to patient?: Patient has dentist HPI HPI Comments History of Present Illness Details The patient is a 50 year old male presenting for an annual physical exam. He has a history of morbid obesity with a BMI of 41.8. He reports symptoms of excessive daytime sleepiness, including falling asleep while reading, watching television, after lunch, and sometimes as a passenger in a car. A prior home sleep study was inconclusive. Has [place] score scale of 12. His past medical history is significant for acid reflux, for which he takes pantoprazole. He reports no known drug allergies. Surgical history includes a deviated nasal septum repair last year and a tonsillectomy. Family history is notable for his father who was an alcoholic and is now , and his mother who is alive with a history of hypertension and a stroke. The patient denies a history of smoking and drinks alcohol occasionally, about once a month. He denies feeling depressed or anxious. For health maintenance, his last colonoscopy was in 2022 and the next one is due in 2032. Tdap vaccine up-to-date. Flu vaccine given today. He did had denise vated blood pressure today and this will be recheck in 3 weeks with a nurse navigator. [facility] Medical History Dyslipidemia Obese GERD (gastroesophageal reflux disease) Surgical History History of deviated nasal septum History of tonsillectomy Family History Father Substance use disorder Mother Hypertension Stroke Social History (Updated 09/25/25 @ 10:02 by Bonnie Hickey MD) Housing: House Alcohol intake: current Alcohol intake frequency: holidays/special occasions only Alcohol type: hard liquor Patient Tobacco Use Status: Never used Tobacco e-Cigarette/Vaping Use: Never Used Second Hand Smoke Exposure: No service: No Current occupational status: employed Current occupational exposures/hazards: No Cognitive needs: No Hearing needs: No Vision needs: No Questionnaire PHQ-9 Over the last 2 weeks, how often have you been bothered by any of the following problems? 1. Little interest or pleasure in doing things: not at all 2. Feeling down, depressed, or hopeless: not at all 3. Trouble falling or staying asleep, or sleeping too much: not at all 4. Feeling tired or having little energy: several days 5. Poor appetite or overeating: more than half the days 6. Feeling bad about yourself - or that you are a failure or have let yourself or your family down: not at all 7. Trouble concentrating on things, such as reading the newspaper or watching television: not at all 8. Moving or speaking so slowly that other people could have noticed. Or the opposite - being so fidgety or restless that you have been moving around a lot more than usual: not at all 9. Thoughts that you would be better off or of hurting yourself in some way: not at all Total score: 3 Depression Screening Interpretation: Negative Depression Screening Done: Yes 38292 - PHQ-9 Billing: Yes Source: Developed by Drs. Elfego Ruiz, Cesilia Fry, Edwin Talley and colleagues, with an educational genesis from [employer]. Thrive Questionnaire Date Thrive assessed: 09/25/25 I am a: Patient What is your living situation today?: I have a steady place to live Within the past 12 months, did the food you bought not last and you didn't have the money to get more?: Never true Within the past 12 months, did you worry whether your food would run out before you got money to buy more?: Never true Do you have trouble paying for medicines?: No Do you have trouble getting transportation to medical appointments?: No Do you have trouble paying your heating and electricity bill?: No Do you have trouble taking care of your child, family member or friend?: No Do you have trouble with day-to-day activities such as bathing, preparing meals, shopping, managing finances, etc.?: No Are you currently unemployed and looking for a job?: No Are you interested in more education?: I choose not to answer this question Please select the resources that you would like help with: None Currently or been in a relationship where the following occur: No concerns reported THRIVE Score: 0 AUDIT C Alcohol Use Questionnaire (AUDIT-C) 1. How often do you have a drink containing alcohol?: Monthly or less 2. How many drinks containing alcohol do you have on a typical day when you are drinking?: 3 or 4 3. How often do you have six or more drinks on one occasion?: Never Total Score: 2 Score Reviewed/Action Taken: No JUMA-7 AMB Questionnaire JUMA-7 Date JUMA - 7 assessed: 09/19/24 Feeling nervous, anxious, or on edge: 0 = Not at all Not being able to stop or control worryin = Not at all Worrying too much about different things: 0 = Not at all Trouble relaxin = Not at all Being so restless that it is hard to sit still: 0 = Not at all Becoming easily annoyed or irritable: 0 = Not at all Feeling afraid as if something awful might happen: 0 = Not at all Total JUMA-7 score (0-4 normal; 5-9 mild; 10-14 moderate; 15-21 severe): 0 Source: Developed by Drs. Elfego Ruiz, Cesilia Fry, Edwin Talley and colleagues, with an educational genesis from [employer]. JUMA-7 Assessment Billing JUMA-7 Assessment Tool: JUMA-7 Assessment 12067 Review of Systems Const All systems reviewed & are unremarkable except as noted in HPI and below Card Denies chest pain at rest, Denies chest pain with activity, Denies edema, Denies irregular heart rhythm, Denies claudication, Denies dyspnea, Denies dyspnea on exertion, Denies orthopnea, Denies paroxysmal nocturnal dyspnea and Denies slow heart rate Resp Denies cough, Denies dyspnea and Denies dyspnea on exertion GI Denies abdominal pain, Denies change in bowel habits, Denies excessive flatus, Denies nausea and Denies vomiting Physical exam (Primary Care) Vital Signs: Last Vital Signs Pulse 98 09/25/25 09:46 Resp 18 09/25/25 09:46 BP 160/98 H 09/25/25 09:46 Pulse Ox 97 09/25/25 09:46 Oxygen Delivery Method Room Air 09/25/25 09:46 BMI result Body Mass Index 41.8 BMI Assessment/Plan discussion: High BMI High, discussed plan: lifestyle, weight reduction, dietary and physical activity Tobacco/Smoking Status: Tobacco use Status Tobacco use date assessed 09/25/25 09/25/25 09:52 Patient Tobacco Use Status Never used Tobacco 09/25/25 10:02 e-Cigarette/Vaping Use Never Used 09/25/25 10:02 PHQ-9: PHQ-9 Score PHQ-9: Total score 3 09/25/25 10:13 Depression Screening Interpretation: Negative Thrive Assessment: Date of Thrive Assessment Date Thrive assessed 09/25/25 09/25/25 09:52 Currently or been in a relationship where the following occur: No concerns reported [facility] Head: Yes normal to inspection, Yes normocephalic and Yes atraumatic Ears: external ears normal Eyes General: appearance normal, both eyes and all related structures Eyelids: Yes eyelids normal Conjunctivae: conjunctivae normal Neck Neck: Yes normal visual inspection and Yes supple Resp Effort & Inspection: normal respiratory effort Auscultation: clear to auscultation bilaterally Cardio Jugular venous distension: no JVD Rate: regular rate Rhythm: regular rhythm Heart sounds: S1 normal heart sound present and S2 normal heart sound present GI Inspection: Yes normal to inspection Palpation (GI): Soft to palpation and nontender Auscultation: normal bowel sounds Skin General skin exam: no rashes or lesions noted Neuro General: no focal motor deficits Extrem General: Yes full ROM Psych Appearance: grossly normal Office Procedures Flu Questionnaire Does the patient have a severe egg allergy?: No Does the patient have severe life threatening allergies?: No Does the patient have a fever or illness today?: No Has the patient ever had Guillain-Coventry Syndrome?: No Has the patient ever had any past reaction to a flu shot?: No Immunizations Fluarix [id number] (PF) 45 mcg (15 mcg x 3)/0.5 mL IM syringe Performing Provider: Bonnie Hickey MD [facility] Administered by: Divine Carrizales LPN on 09/25/25 10:13 Dose Route Admin Location Dispensed Lot Number Expiration Date NDC Business Process Consultant 0.5 mL IM Left Deltoid 0.5 mL [id number] 04/07/26 [id number] [employer] [facility] VIS Given Date VIS Provided VIS Publication Date 09/25/25 Single Vaccine 24 Eligibility Eligibility Date Funding Source Not [facility] Eligible 09/25/25 Private Coding Level of Care Code Est Pt Level 3 (95826) Est Pt Prev Care 40-64y(43565) Diagnoses Physical exam Z00.00 Morbid obesity with BMI of 40.0-44.9, adult E66.01; Z68.41 Daytime somnolence R40.0 Additional Codes JUMA-7 Assessment Billing - JUMA-7 Assessment Tool: JUMA-7 Assessment 70537 ([id number]) PHQ-9 - 03232 - PHQ-9 Billing: Yes ([id number]) Time Spent (min) 32 Assessment & Plan Assessment & Plan (1) Physical exam: Code(s): Z00.00 - Encounter for general adult medical examination without abnormal findings Category: Medical (2) Morbid obesity with BMI of 40.0-44.9, adult: Code(s): E66.01 - Morbid (severe) obesity due to excess calories; Z68.41 - Body mass index [BMI] 40.0-44.9, adult Category: Medical (3) Daytime somnolence: Code(s): R40.0 - Somnolence Category: Medical Plan Plan 1. Physical exam Repeat in a year. Colonoscopy for 2032. Continue yearly flu vaccines. 2. Morbid Obesity The patient has morbid obesity with a BMI of 41.8. A referral to a weight management program will be made, where he can be evaluated for diet plans and the potential benefit of weight loss injections. Fasting labs, including thyroid studies, will be ordered to assess for contributing factors. 3. Elevated Blood Pressure Reading The patient's blood pressure was elevated during the visit. He will have his blood pressure rechecked in 3 weeks. If the reading remains elevated at that time, antihypertensive medication will be prescribed. 4. Excessive Daytime Sleepiness The patient reports significant daytime sleepiness, and a previous home sleep study was inconclusive. A new sleep study will be ordered to further evaluate for sleep apnea. Orders: Orders Comprehensive [place]. Panel Fast Today E66.01 - Morbid (severe) obesity due to excess calories, Z68.41 - Body mass index [BMI] 40.0-44.9, adult RT home sleep study Today R40.0 - Somnolence Lipid Panel Today E66.01 - Morbid (severe) obesity due to excess calories, E78.5 - Hyperlipidemia, unspecified, Z68.41 - Body mass index [BMI] 40.0-44.9, adult Thyroid Stimulating Hormone Today E66.01 - Morbid (severe) obesity due to excess calories, Z68.41 - Body mass index [BMI] 40.0-44.9, adult Complete Blood Count Auto Diff Today E66.01 - Morbid (severe) obesity due to excess calories, Z68.41 - Body mass index [BMI] 40.0-44.9, adult Influenza [id number] Immunization Today Z23 - Encounter for immunization Referrals Medical Weight Management Referral E66.01 - Morbid (severe) obesity due to excess calories, Z68.41 - Body mass index [BMI] 40.0-44.9, adult
== END 2025-09-25 10:15 | disposition home or self-care (01) ==
PROVIDERS: PCP Internal Medicine; Visit Provider Internal Medicine
DX: Z00.00 Encounter for general adult medical examination without abnormal findings (principal); E66.01 Morbid (severe) obesity due to excess calories; Z68.41 Body mass index [BMI] 40.0-44.9, adult; R40.0 Somnolence; Z23 Encounter for immunization

== ENCOUNTER → 2025-09-25 09:31 | Outpatient (BNVA) | payer BC, SELFPAY | PROVIDERS: PCP Internal Medicine; Visit Provider Internal Medicine | DX: Z00.00 Encounter for general adult medical examination without abnormal findings (principal); Z23 Encounter for immunization; R40.0 Somnolence; E66.01 Morbid (severe) obesity due to excess calories; Z68.41 Body mass index [BMI] 40.0-44.9, adult | CPT/HCPCS: 90471; 90656; 96127 ==